=== PATIENT | female | born 1960 | race Caucasian/White ===

== ENCOUNTER 2017-07-04 07:26 | Day surgery (SDC) | payer OTHER ==
--- NOTE | 2017-06-26 13:34 | HISTORY AND PHYSICAL E ---
History and Physical NAME: BRIGHT ASIF : 1960 AGE: 57Y ADMITTED: 07/04/2017 ROOM: HISTORY: Patient presented at this time regarding colon exam. Patient did have colonoscopy in 2014. MEDICATIONS: 1. Synthroid. 2. Tramadol. 3. Boniva. REVIEW OF SYSTEMS: HEENT: Cataract. RESPIRATORY: Shortness of breath on exertion. CARDIAC: Stable. Denies chest pain. ENDOCRINE: Hypothyroid. GASTROINTESTINAL: Colon screening. ONCOLOGIC/HEMATOLOGIC: Anemia, left breast cancer. MUSCULOSKELETAL: Arthritis, lower back pain. FAMILY HISTORY: Father had CA of the lungs. Mom is alive. PHYSICAL EXAMINATION: GENERAL: Pleasant, alert, oriented. VITAL SIGNS: Blood pressure 130/80, pulse 80, respirations 20, temp is 98. HEENT: Normal. NECK: Supple. LUNGS: Clear. ABDOMEN: Soft. NEUROLOGIC: Negative. PAST SURGICAL HISTORY: 1. Thyroid surgery. 2. Reconstruction left breast. 3. Mastectomy left breast. Patient referred to us by [facility]. PLAN: Colon screening scheduled for 07/04. DICTATING PHYSICIAN: LUCY MENDOZA M.D. [id number] PHY#: [id number] ID: [id number] JOB#: [id number] ACCT: [id number] cc:LUCY MENDOZA M.D. >
[~2017-07-04 07:26] MED LIST: EPINEPHRINE INJ 1 MG/10 ML DISP.SYRIN ONE; FLUMAZENIL INJ 0.5 MG/5 ML VIAL ONE; GLUCAGON,HUMAN RECOMB 1 MG INJ ONE; GLYCOPYRROLATE INJ 0.4 MG/2 ML VIAL ONE; LIDOCAINE 2% JELLY 30 ML TUBE ONE; MIDAZOLAM 2 MG/2 ML INJ ONE; NALOXONE HCL INJ/PF 0.4 MG/1 ML SDV ONE; ONDANSETRON HCL INJ/PF 4 MG/2 ML SDV ONE
[2017-07-04] MEDS: MIDAZOLAM 2 MG/2 ML INJ ONE ×2 (08:24→08:30)
[2017-07-04] MEDS: FENTANYL CITRATE INJ/PF 100 MCG/2 ML AMPUL ONE ×3 (08:26→08:32)
--- NOTE | 2017-07-04 11:16 | OPERATIVE REPORT E ---
Operative Report NAME: BRIGHT ASIF : 1960 AGE: 57Y DATE OF SURGERY: 07/04/2017 ROOM: PREOPERATIVE DIAGNOSIS: A 57-year-old female, colon screening. POSTOPERATIVE DIAGNOSES: 1. A 2 mm sigmoid polyp removed by biopsy. 2. External hemorrhoid. 3. Prep was adequate but not optimal. 4. Moderate amount of liquid stool scattered around the colon. OPERATION: Colonoscopy. SURGEON: LUCY MENDOZA M.D. TISSUE REMOVED OR ALTERED: ANESTHESIA: DESCRIPTION: Rectal exam: External hemorrhoids. Rectum normal. Sigmoid: A 2 mm polyp, benign looking, hyperplastic, removed by biopsy. Descending colon: Normal. Transverse colon: Normal. Ascending colon and cecum: Normal. The orifice of the appendix was visualized, lavaged and visualization of the cecum was normal, ascending colon normal, transverse colon normal, sigmoid polyp removed, external hemorrhoids. DISCHARGE PLAN: 1. Soft residue diet for 2 days. 2. Hold aspirin and nonsteroidals for 3 days. 3. Awaiting biopsy results. 4. Consideration for colonoscopy in 3 years. DICTATING PHYSICIAN: LUCY MENDOZA M.D. [id number] PHY#: [id number] ID: [id number] JOB#: [id number] ACCT: [id number] cc:ERIK EVERETT M.D., LUCY Brown >
--- NOTE | 2017-07-04 11:16 | DISCHARGE SUMMARY E ---
Discharge Summary NAME: BRIGHT ASIF : 1960 AGE: 57Y ADMITTED: 07/04/2017 DISCHARGED: 07/04/2017 HISTORY OF PRESENT ILLNESS: The patient is 57. She has history of left breast cancer. History of seizure disorder. Last seizure was 2 years ago. She did have some wheezing and asthma. Underwent colon screening today. It shows no evidence of malignancy. MEDICATIONS: 1. Effexor. 2. Inderal. 3. Proventil. 4. Synthroid. CONCLUSION: 1. Status post screening colonoscopy. 2. Benign looking polyp 2 mm, removed by biopsy. 3. Mild external hemorrhoids. DISCHARGE PLAN: Soft diet. Hold aspirin and nonsteroidal for 3 days. DICTATING PHYSICIAN: LUCY MENDOZA M.D. [id number] [id number] PHY#: [id number] ID: [id number] JOB#: [id number] ACCT: [id number] cc:ERIK EVERETT M.D., MAHMOUD M.D. >
[2017-07-04 11:38] VITALS: BP 128/74
== END 2017-07-04 11:30 | disposition home or self-care (01) ==
LOC: END 07:26
PROVIDERS: ATTEND Specialist
PROC: 0DBN8ZX Excision of Sigmoid Colon, Via Natural or Artificial Opening Endoscopic, Diagnostic (ICD-10-PCS; principal; 2017-07-04 08:00)
DX: Z12.11 Encounter for screening for malignant neoplasm of colon (principal); D12.5 Benign neoplasm of sigmoid colon; K64.4 Residual hemorrhoidal skin tags; D64.9 Anemia, unspecified; M19.90 Unspecified osteoarthritis, unspecified site; R06.02 Shortness of breath; E89.0 Postprocedural hypothyroidism; Z79.899 Other long term (current) drug therapy; Z79.891 Long term (current) use of opiate analgesic; Z79.51 Long term (current) use of inhaled steroids; Z85.3 Personal history of malignant neoplasm of breast
CPT/HCPCS: 45380; 88305 ×2; J2250; J3010; J1610; J2405; J0171; J2310; J3490

== ENCOUNTER → 2018-04-13 | Outpatient (CLI) | payer OTHER ==
--- NOTE | 2018-04-13 09:24 | WOMENS IMAGING REPORT ---
EXAM DESCRIPTION: BONE DENSITY HIP/SPINE COMPLETED DATE/TIME: 04/13/2018 9:15 am REASON FOR STUDY: BONE DENSITY/Z13.820 Z13.820 ENCOUNTER FOR SCREENING FOR OSTEOPOROSIS COMPARISON: 2014 TECHNIQUE: Dual-Energy X-ray Absorptiometry (DEXA) of the AP Spine and Hip. LIMITATIONS: None. FINDINGS: LUMBAR SPINE: The bone mineral density (BMD) measured from L1-L4 in the AP projection correlates with a T-score of -0.2, previously -0.3, which is normal as defined by the World Health Organization. HIP: The bone mineral density (BMD) measured in the left hip correlates with a T-score of -0.9, previously -1.1, which is normal as defined by the World Health Organization. IMPRESSION: 1. LUMBAR SPINE: NORMAL. 2. HIP: NORMAL. COMMENT: The World Health Organization defines low BMD as follows: T-score: Normal: Greater than -1.0 Osteopenia: Between -1.0 and -2.5 Osteoporosis: Less than -2.5 without fractures Established osteoporosis: Less than -2.5 with fractures In general, you may wish to consider: Diagnosis Treatment Follow-up DEXA Normal BMD Prevention 2-3 years Osteopenia Prevention/Therapy 1-2 years Osteoporosis Therapy Yearly TECHNICAL DOCUMENTATION: JOB ID: [id number] [employer]- All Rights Reserved Reading location - IP/workstation name: [email or web address]
== END ==
LOC: WI 08:48
PROVIDERS: ATTEND Internal Medicine Medical Oncology
DX: Z13.820 Encounter for screening for osteoporosis (principal)
CPT/HCPCS: 77080

== ENCOUNTER → 2018-11-06 | Outpatient (CLI) | payer OTHER ==
[2018-11-06 11:03] LABS: ANION GAP 13 (5-19); BLOOD UREA NITROGEN 15 mg/dL (7-20); CALCIUM 9.5 mg/dL (8.4-10.2); CARBON DIOXIDE 25 mmol/L (22-30); CHLORIDE 105 mmol/L (98-107); GLUCOSE 84 mg/dL (75-110); POTASSIUM 4.4 mmol/L (3.6-5.0); SODIUM 142.6 mmol/L (137-145)
[2018-11-06 11:19] LABS: UR PRO/CREAT RATIO RESULT 0.1 mg/mg (0.0-0.2); URINE CREATININE 67.8 mg/dL (15-278); URINE PROTEIN 9.6 mg/dL (<12)
[2018-11-07 11:37] LABS: CREATININE URINE 61.7 mg/dL (Not Estab.); MICROALBUMIN URINE 3.7 ug/mL (Not Estab.)
== END ==
LOC: OD 09:32
PROVIDERS: ATTEND Internal Medicine Nephrology
DX: I12.9 Hypertensive chronic kidney disease with stage 1 through stage 4 chronic kidney disease, or unspecified chronic kidney disease (principal); N18.9 Chronic kidney disease, unspecified; R31.9 Hematuria, unspecified
CPT/HCPCS: 36415; 80048; 82043; 82570; 84156

== ENCOUNTER → 2019-05-11 | Outpatient (CLI) | payer OTHER ==
[2019-05-11 16:43] LABS: APPEARANCE,URINE SLIGHTLY-CLOUDY; BILIRUBIN,URINE NEGATIVE (NEGATIVE); COLOR,URINE YELLOW; GLUCOSE, URINE NEGATIVE (NEGATIVE); KETONES,URINE NEGATIVE (NEGATIVE); LEUKOCYTE ESTERASE,URINE TRACE (NEGATIVE); NITRITE,URINE NEGATIVE (NEGATIVE); PROTEIN,URINE NEGATIVE (NEGATIVE); URINE SPECIFIC GRAVITY 1.015; UROBILINOGEN,URINE NEGATIVE mg/dL (<2.0)
[2019-05-11 16:47] LABS: ANION GAP 11 (5-19); BLOOD UREA NITROGEN 15 mg/dL (7-20); CALCIUM 9.5 mg/dL (8.4-10.2); CARBON DIOXIDE 27 mmol/L (22-30); CHLORIDE 102 mmol/L (98-107); GLUCOSE 85 mg/dL (75-110); POTASSIUM 4.4 mmol/L (3.6-5.0)
== END ==
LOC: OD 15:25
PROVIDERS: ATTEND Internal Medicine Nephrology
DX: I10 Essential (primary) hypertension (principal); N28.1 Cyst of kidney, acquired
CPT/HCPCS: 36415; 80048; 81001